=== PATIENT | female | born 2000 | race Caucasian/White ===

== ENCOUNTER 2023-07-17 10:01 | Emergency (ER) | payer OTHER ==
[~2023-07-17] VITALS: Ht 154.9 cm; Wt 56.8 kg
[2023-07-17 10:07] VITALS: BP 127/73; TEMP 97.8
[2023-07-17] MEDS ORDERED: diphenhydrAMINE 50 MG/ML 1 ML VIAL IV ONE (10:30)
[2023-07-17] MEDS ORDERED: methylPREDNISolone Sod Succ 125 MG/2 ML VIAL IV ONE (10:30)
[2023-07-17] MEDS ORDERED: PREDNISONE20 MG PO (11:22)
[2023-07-17 11:35] VITALS: PULSE 70
== END 2023-07-17 11:35 | disposition home or self-care (01) ==
LOC: COL.ER 10:01
DX: L50.9 Urticaria, unspecified (principal)
CPT/HCPCS: J1200; J2919